=== PATIENT | male | born 1955 | race Caucasian/White ===

== ENCOUNTER 2017-01-01 22:46 | Emergency (ER) | payer SELFPAY ==
[~2017-01-01] VITALS: Ht 180.3 cm; Wt 117.0 kg
[~2017-01-01 22:46] MED LIST: BACTDS PO; CEPH-443 PO; IBUP-1542 PO
[2017-01-01 22:49] VITALS: Ht 180.3 cm; Wt 117.0 kg
[2017-01-01] MEDS ORDERED: PIPER-TAZO 3.375 GM IV (PMX) 100 ML IVPB STA (23:05)
[2017-01-01] MEDS ORDERED: VANCOMYCIN 1 GM (PMX) 250 ML IVPB STA (23:05)
[2017-01-01] MEDS ORDERED: SOD CHLORIDE 0.9% 1,000 ML IV ONE (23:30)
[2017-01-01] MEDS ORDERED: DIPHENHYDRAMINE 50 MG INJ IM ONE (23:30)
--- NOTE | 2017-01-02 00:03 | ERD ---
ER Documentation Chief Complaint Date/Time DATE: 01/02/17 TIME: 00:00 Chief Complaint c/o generalized body rash x 3 days. Non healing wound to LLE x 2 yrs. HPI This 61-year-old male patient presents to emergency department today for evaluation of a painful black lesion on left foot. Patient reports lesion is chronic, but reports redness pain swelling and inability to weight-bear over the last 3 days. Patient has not had medical care in over 2 years. Patient reports pain is 8/10 on pain scale. Has secondary complaint of a pruritic body rash with no known causative factor, patient has not tried any new medication or vitamin, denies any new foods soap or home products and use. 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 Patient reports that he is frequently hungry, thirsty, with frequent urination, denies history of diabetes himself, denies any medical history, denies smoking, cardiovascular disease, chest pain shortness of breath , palpitations or dizziness. ROS All systems reviewed and are negative except as per history of present illness. Medications Home Meds Active Scripts Ibuprofen* (Motrin*) 600 Mg Tab, 600 MG PO Q8, #15 Prov:PAUL,MARGIE 03/17/15 Cephalexin* (Keflex*) 500 Mg Capsule, 500 MG PO QID for 5 Days, CAP Prov:PAUL,MARGIE 03/17/15 Cephalexin* (Keflex*) 500 Mg Capsule, 500 MG PO TID for 7 Days, CAP Prov:VISH PATTERSON NP 02/17/15 Sulfamethoxazole-Trimethoprim* (Bactrim* DS) 800-160 Mg Tab, 1 TAB PO BID for 10 Days, TAB Prov:VISH PATTERSON NP 02/17/15 Ibuprofen* (Motrin*) 600 Mg Tab, 600 MG PO Q6H Y for PAIN AND OR ELEVATED TEMP, #30 Prov:VISH PATTERSON NP 02/17/15 Allergies Allergies: Coded Allergies: No Known Allergy (Unverified , 02/17/15) PMhx/Soc Medical and Surgical Hx: pt denies Medical Hx, pt denies Surgical Hx History of Surgery: No Anesthesia Reaction: No Hx Neurological Disorder: No Hx Respiratory Disorders: No Hx Cardiac Disorders: No Hx Psychiatric Problems: No Hx Miscellaneous Medical Probl: No Hx Alcohol Use: No Hx Substance Use: No Hx Tobacco Use: No Physical Exam Vitals Vital Signs Date Time Temp Pulse Resp B/P Pulse Ox O2 Delivery O2 Flow Rate FiO2 01/02/17 01:50 97.6 65 18 112/69 97 Room Air 01/01/17 22:49 99.2 80 18 154/86 95 Vitals stable, triage notes reviewed Physical Exam Const: Obese, hydrated male patient in dirty clothes in no acute distress Head: Atraumatic Eyes: Normal Conjunctiva, PERRLA, EOMI ENT: Normal External Ears, Nose and Mouth, mucous membranes moist. Neck: Full range of motion..~ No meningismus. Resp: Clear to auscultation bilaterally no rales wheezes or rhonchi Cardio: Regular rate and rhythm, no murmurs S1-S2, no S3, S4 Abd: Soft, obese non tender, non distended. Skin: Patient has a 4 cm x 3.5 cm black stasis ulcer surrounding erythema, with warmth and edema. Back: Ext: Lower Extremity - bilateral: Skin: 4 cm x 3.5 cm black stasis ulcer surrounding erythema , with warmth and edema. Compartments: Soft Motor: Full active range of motion hip/knee/ankle/foot Sensation: [Intact to light touch all surfaces.] Bones: Nontender pelvis/knee/proximal tibia/ malleoli/foot Joints: No effusion or laxity Pulses/Perfusion: 2+ DP, Capillary refill < 2 seconds Neur: Awake and alert Psych: Normal Mood and Affect Result Diagram: 01/01/17 2310 01/01/17 2310 Results 24 hrs Laboratory Tests Test 01/01/17 23:10 White Blood Count 8.610^3/ul Red Blood Count 5.0710^6/ul Hemoglobin 15.3g/dl Hematocrit 46.3% Mean Corpuscular Volume 91.3fl Mean Corpuscular Hemoglobin 30.2pg Mean Corpuscular Hemoglobin Concent 33.0g/dl Red Cell Distribution Width 13.7% Platelet Count 10314^3/UL Mean Platelet Volume 11.4fl Neutrophils % 53.3% Lymphocytes % 36.0% Monocytes % 8.0% Eosinophils % 2.3% Basophils % 0.3% Nucleated Red Blood Cells % 0.0/100WBC Neutrophils # 4.610^3/ul Lymphocytes # 3.110^3/ul Monocytes # 0.710^3/ul Eosinophils # 0.210^3/ul Basophils # 0.010^3/ul Nucleated Red Blood Cells # 0.010^3/ul Prothrombin Time 13.6Sec Prothrombin Time Ratio 1.1 INR International Normalized Ratio 1.04 Activated Partial Thromboplast Time 29.6Sec Urine Color YELLOW Urine Clarity CLEAR Urine pH 6.0 Urine Specific [place] 1.009 Urine Ketones NEGATIVEmg/dL Urine Nitrite NEGATIVEmg/dL Urine Bilirubin NEGATIVEmg/dL Urine Urobilinogen NEGATIVEmg/dL Urine Leukocyte Esterase NEGATIVELeu/ul Urine Microscopic RBC 3/HPF Urine Microscopic WBC 0/HPF Urine Hemoglobin 2+mg/dL Urine Glucose NEGATIVEmg/dL Urine Total Protein NEGATIVEmg/dl Sodium Level 138mmol/L Potassium Level 3.5mmol/L Chloride Level 101mmol/L Carbon Dioxide Level 30mmol/L Anion Gap 11 Blood Urea Nitrogen 15mg/dl Creatinine 0.83mg/dl Glucose Level 111mg/dl Lactic Acid Level 1.3mmol/L Calcium Level 9.6mg/dl Total Bilirubin 0.4mg/dl Direct Bilirubin 0.00mg/dl Indirect Bilirubin 0.4mg/dl Aspartate Amino Transf (AST/SGOT) 27IU/L Alanine Aminotransferase (ALT/SGPT) 32IU/L Alkaline Phosphatase 69IU/L Troponin I < 0.012ng/ml Total Protein 7.8g/dl Albumin 4.7g/dl Globulin 3.10g/dl Albumin/Globulin Ratio 1.51 Current Medications Medications (Trade) Dose Ordered Sig/Kvng Route PRN Reason Start Time Stop Time Status Last Admin Dose Admin Vancomycin HCl 250 ml @ 125 mls/hr ONCE STAT IVPB 01/01/17 23:05 01/02/17 01:04 DC 01/02/17 01:42 Piperacillin Sod/ Tazobactam Sod 100 ml @ 100 mls/hr ONCE STAT IVPB 01/01/17 23:05 01/02/17 00:04 DC 01/02/17 00:39 Sodium Chloride (NS) 1,000 ml @ 1,000 mls/hr Q1H ONCE IV 01/01/17 23:30 01/02/17 00:29 DC 01/02/17 00:25 Diphenhydramine HCl (Benadryl) 25 mg ONCE ONCE IM 01/01/17 23:30 01/02/17 00:34 DC Diphenhydramine HCl (Benadryl) 25 mg ONCE ONCE IV 01/02/17 01:00 01/02/17 01:01 DC 01/02/17 00:38 Acetaminophen/ Hydrocodone Bitart ([place] (5/325)) 1 tab ONCE ONCE PO 01/02/17 02:30 01/02/17 02:31 DC 01/02/17 02:36 Interpretation text CBC shows no evidence of hemorrhage or infection Chemistry shows no evidence of significant electrolyte abnormalities or renal insufficiency Liver function tests shows no evidence of acute biliary or hepatic dysfunction Coagulation study showed no concerning coagulpathy Troponin show no evidence of acute myocardial injury or coronary ischemia Procedures/MDM PROCEDURE: XR Left Ankle. CLINICAL INDICATION: Necrotic wound TECHNIQUE: Two views of the left ankle were performed. COMPARISON: None. FINDINGS: There is posterior and medial malleolar subcutaneous soft tissue swelling. There is no underlying fracture, soft tissue gas or bony erosion.. Joint relationships are maintained. Ankle mortise is intact. Bone mineralization is within normal limits. There is no radiopaque foreign body. There is a plantar calcaneal bone spur. IMPRESSION: Posterior medial malleolar subcutaneous soft tissue swelling without underline lesion. Plantar calcaneal bone spur.. Electronically viewed and signed by .Nils Fowler MD, MD on 01/02/2017 00:24 PROCEDURE: XR Chest. CLINICAL INDICATION: Necrotic wound. TECHNIQUE: Single frontal chest x-ray. COMPARISON: None. FINDINGS: Heart is mildly enlarged.. Point vessels are top normal caliber.. No focal infiltrate is seen. There is no pleural effusion. There is no pneumothorax. The osseous structures are unremarkable. IMPRESSION: Cardiomegaly. Pulmonary vessels top normal caliber. No focal infiltrate. Electronically viewed and signed by .Nils Fowler MD, on 01/02/2017 00:22 PROCEDURE: US left lower extremity venous Doppler CLINICAL INDICATION: Swelling TECHNIQUE: Multiple sonographic images of the left lower extremity deep venous system was obtained utilizing grayscale, color-flow, compressive sonography and Doppler imaging with augmentation. COMPARISON: No pertinent prior examinations were submitted for comparison. FINDINGS: There is normal compressibility and flow within the left common femoral, superficial femoral, popliteal, and calf veins. IMPRESSION: No sonographic evidence for left deep venous thrombosis. Electronically viewed and signed by .Jovani Blanchard MD, on 01/02/2017 00:31 This 61-year-old male patient presents to emergency department today with cellulitis of a chronic ulcer. Patient reports no medical care for the last several years, has had ulcerative plaque on his left medial ankle for several years, reports treatment once without effective relief of symptoms also reports that he has used some sort of topical cream that was prescribed for his with no change in symptoms. Exanthem on torso and arms described as pruritic. Osteomyelitis, necrotizing fasciitis, pulmonary embolism, not suspected. Routine serologies shows no evidence of hemorrhage or acute infection. No electrolyte dysfunction or diabetes, Coagulation study showed no concerning coagulpathy. Blood cultures drawn with results pending, lactate normal. Deep vein thrombosis is ruled out impression no sonographic evidence for deep vein thrombosis, there is normal compressibility and flow within the left common femoral supra facial femoral popliteal and calf veins. Chest x-ray reveals cardiomegaly, pulmonary vessels top caliber with no in, left ankle x-ray documents posterior medial malleolus subcutaneous soft tissue swelling without underlying lesion, Soft tissue infection treated with vancomycin, Zosyn, patient receives 1 L of IV fluids, pain treated with [place]. Patient reports improvement of symptoms assisted through treatments. Able to ambulate to bathroom with no report of pain. And to discharge patient home with Keflex, Zosyn, short dose of [place] and instructions to follow-up with wound clinic. Return to emergency department for worsening of symptoms, pain, shortness of breath, I feel the patient is stable for discharge at this time. I have discussed results, examination findings, the treatment plan with the patient and family present prior to discharge. Indications for emergent reevaluation, side effects of medication were also discussed. All questions were answered. Patient verbalizes understanding and agrees with plan of care. Case discussed with supervising physician Dr. Russ Caro Diagnosis: Primary Impression: Cellulitis Site of cellulitis: extremity Site of cellulitis of extremity: lower extremity Laterality: left Qualified Code: L03.116 - Cellulitis of left lower extremity Additional Impression: Venous ulcer of ankle Laterality: left Qualified Code: I83.023 - Venous ulcer of ankle, left Condition: Good Patient Instructions: Cellulitis, Venous Leg Ulcer Referrals: [facility] Additional Instructions: Thank you for for coming to [facility] for your care today. Please ask your nurse or provider if you have questions about your care today and do not leave until all your questions have been answered. Please use any medications given as directed and follow-up with your doctor (or the doctor you were referred to) in the next 2-3 days. If you do not have a primary care doctor you may follow up at the [facility] (listed below). You may also use motrin and tylenol as needed for fever and/or pain unless instructed otherwise by your provider or nurse. Indications for more urgent follow-up have been discussed, but you may return to the Emergency Department at ANY time for any worrisome or worsening symptoms. If you have abdominal pain, please know that no test or exam you received is perfect and you should follow up within 8 hours for continued pain. If you had any imaging studies today, such as an X-Ray or CT Scan, these studies will be reviewed later by a radiologist. You will be called if there are important findings that were not identified today, so make sure the contact information you provided at registration is correct. If you received any narcotic pain control medicine today, such as Vicodin, Morphine or Dilaudid, your coordination and judgment may be affected for a number of hours. Please do not drive or operate heavy machinery, and you may want someone to assist you at home. If you were given a prescription for narcotic medication, be aware that it is very addictive- use sparingly and only if necessary. LEONARDA ROMANO Jan 02, 2017 00:03
[2017-01-02 00:04] LABS: ADD SCAN DIFF NO; BASOPHILS % 0.3 % (0.0-2.0); EOSINOPHILS # 0.2 10^3/ul (0.0-0.5); EOSINOPHILS % 2.3 % (0.0-7.0); HEMATOCRIT 46.3 % (42.0-52.0); HEMOGLOBIN 15.3 g/dl (14.0-18.0); LYMPHOCYTES # 3.1 10^3/ul (0.8-2.9); MEAN CORPUSCULAR HEMOGLOBIN 30.2 pg (29.0-33.0); MEAN CORPUSCULAR VOLUME 91.3 fl (82.0-101.0); MEAN PLATELET VOLUME 11.4 fl (7.4-10.4); MONOCYTE # 0.7 10^3/ul (0.3-0.9); NEUTROPHIL # 4.6 10^3/ul (1.6-7.5); NEUTROPHILS % 53.3 % (39.0-77.0); PLATELET COUNT 182 10^3/UL (140-415); RED BLOOD COUNT 5.07 10^6/ul (4.70-6.10); RED CELL DISTRIBUTION WIDTH 13.7 % (11.5-14.5); WHITE BLOOD COUNT 8.6 10^3/ul (4.8-10.8)
[2017-01-02 00:17] LABS: ADD UMIC YES; UR ASCORBIC ACID NEGATIVE (NEGATIVE); UR BILIRUBIN (Dip) NEGATIVE (NEGATIVE); UR BLOOD (Dip) 2+ mg/dL (NEGATIVE); UR CLARITY CLEAR (CLEAR); UR COLOR YELLOW (YELLOW); UR GLUCOSE (Dip) NEGATIVE (NEGATIVE); UR KETONES (Dip) NEGATIVE (NEGATIVE); UR LEUKOCYTE ESTERASE (Dip) NEGATIVE Leu/ul (NEGATIVE); UR NITRITE (Dip) NEGATIVE (NEGATIVE); UR RBC 3 /HPF (0-5); UR SPECIFIC GRAVITY (Dip) 1.009 (1.003-1.030); UR TOTAL PROTEIN (Dip) NEGATIVE (NEGATIVE); UR UROBILINOGEN (Dip) NEGATIVE (NEGATIVE)
--- NOTE | 2017-01-02 00:22 | RADRPT ---
PROCEDURE: XR Chest. CLINICAL INDICATION: Sepsis. TECHNIQUE: Single frontal chest x-ray. COMPARISON: None. FINDINGS: Heart is mildly enlarged.. Point vessels are top normal caliber.. No focal infiltrate is seen. The re is no pleural effusion. There is no pneumothorax. The osseous structures are unremarkable. IMPRESSION: Cardiomegaly. Pulmonary vessels top normal caliber. No focal infiltrate. RPTAT: HMVK .Nils Fowler MD, MD Date Time Electronically viewed and signed by .Nils Fowler MD, on 01/02/2017 00:22 .K/
[2017-01-02 00:25] LABS: INR 1.04; PROTIME 13.6 Sec (12.2-14.2); PT RATIO 1.1
--- NOTE | 2017-01-02 00:25 | RADRPT ---
PROCEDURE: XR Left Ankle. CLINICAL INDICATION: Necrotic wound TECHNIQUE: Two views of the left ankle were performed. COMPARISON: None. FINDINGS: There is posterior and medial malleolar subcutaneous soft tissue swelling. There is no underlying f racture, soft tissue gas or bony erosion.. Joint relationships are maintained. Ankle mortise is in tact. Bone mineralization is within normal limits. There is no radiopaque foreign body. There is a plantar calcaneal bone spur. IMPRESSION: Posterior medial malleolar subcutaneous soft tissue swelling without underline lesion. Plantar calc aneal bone spur.. RPTAT: HMVK .Nils Fowler MD, Date Time Electronically viewed and signed by .Nils Fowler MD, on 01/02/2017 00:24 .K/
[2017-01-02 00:26] LABS: PARTIAL THROMBOPLASTIN TIME 29.6 Sec (25.0-35.0)
[2017-01-02 00:29] LABS: ALANINE AMINOTRANSFERASE 32 IU/L (13-69); ALBUMIN 4.7 g/dl (3.3-4.9); ALBUMIN/GLOBULIN RATIO 1.51; ALKALINE PHOSPHATASE 69 IU/L (42-121); ANION GAP 11 (8-16); ASPARTATE AMINO TRANSFERASE 27 IU/L (15-46); BILIRUBIN,INDIRECT 0.4 mg/dl (0-1.1); BILIRUBIN,TOTAL 0.4 mg/dl (0.2-1.3); BLOOD UREA NITROGEN 15 mg/dl (7-20); CALCIUM 9.6 mg/dl (8.4-10.2); CARBON DIOXIDE 30 mmol/L (21-31); CHLORIDE 101 mmol/L (97-110); CREATININE 0.83 mg/dl (0.61-1.24); GLUCOSE 111 mg/dl (70-220); POTASSIUM 3.5 mmol/L (3.5-5.1); SODIUM 138 mmol/L (135-144); TOTAL PROTEIN 7.8 g/dl (6.1-8.1)
--- NOTE | 2017-01-02 00:31 | RADRPT ---
PROCEDURE: US left lower extremity venous Doppler CLINICAL INDICATION: Swelling TECHNIQUE: Multiple sonographic images of the left lower extremity deep venous system was obtained utilizing grayscale, color-flow, compressive sonography and Doppler imaging with augmentation. COMPARISON: No pertinent prior examinations were submitted for comparison. FINDINGS: There is normal compressibility and flow within the left common femoral, superficial femoral, poplit eal, and calf veins. IMPRESSION: No sonographic evidence for left deep venous thrombosis. RPTAT: HIKT .Jovani Blanchard MD, MD Date Time Electronically viewed and signed by .Jovani Blanchard MD, on 01/02/2017 00:31 .T/
[2017-01-02 00:47] LABS: TROPONIN-I < 0.012 ng/ml (0.00-0.12)
[2017-01-02] MEDS ORDERED: DIPHENHYDRAMINE 50 MG INJ IV ONE (01:00)
[2017-01-02 01:50] VITALS: BP 112/69; PULSE 65; RESP 18; TEMP 97.6
[2017-01-02] MEDS ORDERED: HYDROCODONE/APAP (5/325) TAB PO ONE (02:30)
[2017-01-02] MEDS ORDERED: SULF1TAB31 PO (02:53)
[2017-01-02] MEDS ORDERED: CEPH-443 PO (02:53)
[2017-01-02] MEDS ORDERED: HYDR-906 PO (02:54)
== END 2017-01-02 04:11 | disposition home or self-care (01) ==
LOC: FTE 22:46
DX: L03.116 Cellulitis of left lower limb (principal); I83.023 Varicose veins of left lower extremity with ulcer of ankle; L97.329 Non-pressure chronic ulcer of left ankle with unspecified severity; E66.9 Obesity, unspecified; M79.89 Other specified soft tissue disorders; Z68.35 Body mass index [BMI] 35.0-35.9, adult
CPT/HCPCS: 36415; 71010; 73600; 80053; 81001; 83605; 84484; 85025; 85610; 85730; 87040; 87086; 93005; 93971; 96374; 96375; 99285; J1200; J2543; J3370; J7030

== ENCOUNTER 2017-02-02 17:58 | Emergency (ER) | END 2017-02-02 21:27 | disposition home or self-care (01) | DX: I87.2 Venous insufficiency (chronic) (peripheral) (principal); I10 Essential (primary) hypertension; E11.9 Type 2 diabetes mellitus without complications; E66.9 Obesity, unspecified | CPT/HCPCS: 36415; 73610; 80048; 85025; Z7502; Z7610 ==

== ENCOUNTER 2018-12-30 11:07 | Emergency (ER) | payer BC, MEDICAID ==
[~2018-12-30] VITALS: Ht 165.1 cm; Wt 111.1 kg
[~2018-12-30 11:07] MED LIST changes: +HYDR-4011 PO; +MUPI22OI2 TOP; +SULF1TAB31 PO
[2018-12-30 11:15] VITALS: Ht 165.1 cm; Wt 111.1 kg
[2018-12-30] MEDS ORDERED: CEPH-443 PO (12:55)
[2018-12-30] MEDS ORDERED: SULF1TAB31 PO (12:55)
[2018-12-30] MEDS ORDERED: MUPI22OI2 TOP (12:55)
--- NOTE | 2018-12-30 13:04 | ERD ---
ER Documentation Chief Complaint Chief Complaint HAS WOUND LEFT LEG X 3 YEARS, DRAINING X 3 DAYS HPI This is a 63-year-old male with a history of venous insufficiency presents ED with complaints of left medial ankle ulceration that is been present for the past 8 years. Patient states that initially the ankle ulceration started out very small but it has grown over the past 8 years. Patient had a vein surgery performed roughly 1-1/2 years ago. Over the past week or 1-year-old he has started to experience pain along the left medial ankle and states that it has been using scant liquid. Patient has not followed up with vascular surgery or wound care regarding the left medial ankle wound. Denies fevers, chills, tingling, numbness, lack sensation, chest pain, shortness of breath, trouble breathing, and all other symptoms. ROS All systems reviewed and are negative except as per history of present illness. Medications Home Meds Active Scripts Mupirocin* (Bactroban*) 2% -22 Gram Oint...g., 1 APPLIC TOP BID for 7 Days, EA Prov:AMADA ALVARADO PA-C 12/30/18 Cephalexin* (Keflex*) 500 Mg Capsule, 500 MG PO QID for 7 Days, CAP Prov:AMADA ALVARADO PA-C 12/30/18 Sulfamethoxazole/Trimethoprim* (Bactrim Ds* Tablet) 1 Each Tablet, 1 TAB PO BID, #14 TAB Prov:AMADA ALVARADO PA-C 12/30/18 Mupirocin* (Bactroban*) 2% -22 Gram Oint...g., 1 APPLIC TOP BID for 10 Days, #1 TUB Prov:BINU MCKEON MD 02/02/17 Hydrocodone/Acetaminophen (Orestes 5-325 Tablet) 1 Each Tablet, 1 TAB PO Q6H PRN for PAIN, #12 TAB Prov:ROSALINA,LEONARDA 01/02/17 Sulfamethoxazole/Trimethoprim* (Bactrim Ds* Tablet) 1 Each Tablet, 1 TAB PO DAILY, #7 TAB Prov:ROSALINA,LEONARDA 01/02/17 Cephalexin* (Keflex*) 500 Mg Capsule, 500 MG PO QID for 10 Days, #40 CAP Prov:ROSALINA,LEONARDA 01/02/17 Ibuprofen* (Motrin*) 600 Mg Tab, 600 MG PO Q8, #15 Prov:MARGIE MILLER DO 03/17/15 Cephalexin* (Keflex*) 500 Mg Capsule, 500 MG PO QID for 5 Days, CAP Prov:MARGIE MILLER DO 03/17/15 Cephalexin* (Keflex*) 500 Mg Capsule, 500 MG PO TID for 7 Days, CAP Prov:VISH PATTERSON [employer] 02/17/15 Sulfamethoxazole-Trimethoprim* (Bactrim* DS) 800-160 Mg Tab, 1 TAB PO BID for 10 Days, TAB Prov:VISH PATTERSON [employer] 02/17/15 Ibuprofen* (Motrin*) 600 Mg Tab, 600 MG PO Q6H PRN for PAIN AND OR ELEVATED TEMP, #30 Prov:VISH PATTERSON NP 02/17/15 Allergies Allergies: Coded Allergies: No Known Allergy (Unverified , 12/30/18) PMhx/Soc Medical and Surgical Hx: pt denies Medical Hx, pt denies Surgical Hx History of Surgery: No Anesthesia Reaction: No Hx Neurological Disorder: No Hx Respiratory Disorders: No Hx Cardiac Disorders: Yes (HTN) Hx Psychiatric Problems: No Hx Miscellaneous Medical Probl: No Hx Alcohol Use: Yes (social) Hx Substance Use: No Hx Tobacco Use: No Smoking Status: Never smoker FmHx Family History: No diabetes Physical Exam Vitals Vital Signs Date Temp Pulse Resp B/P (MAP) Pulse Ox O2 O2 Flow FiO2 Time Delivery Rate 12/30/18 97.4 82 18 144/85 99 11:15 (104) Physical Exam Physical Exam Vitals signs: Reviewed by me. General: Well developed, well nourished, in no acute distress. Patient is awake and alert. Head: Normocephalic, atraumatic. Eyes: Normal conjunctiva, Pupils PERRLA, EOM intact grossly ENT: Pharynx is clear, Moist mucous membranes, external ears, nose and mouth normal Neck: Supple, no masses, lymphadenopathy or JVD Respiratory: Clear to auscultation bilaterally with no wheezing, rhonchi, rales, no distress Cardiovascular: RRR, no murmurs, rubs, or gallops MSK: No edema, no unilateral swelling, 5/5 strength Back: No midline tenderness. No flank tenderness Neurologic: Alert and oriented, moving all extremities, normal speech, no focal weakness, no cerebellar signs. Normal mentation Skin: There is an ulceration present along patient's left medial ankle, it is mildly tender to palpation, there is no surrounding redness, warmth, no purulent drainage or oozing liquid is expressed when palpating, no lymphatic streaking Psych: Normal mood Procedures/MDM ER COURSE: The patient was stable throughout ED course. I kept the patient and/or family informed of laboratory and diagnostic imaging results throughout the emergency room course. The patient was promptly evaluated and a treatment plan was devised based on H&P and other data. This plan was discussed with the patient who agreed and had no further questions or concerns prior to discharge. MEDICAL DECISION MAKING: This is a 63-year-old male with a history of chronic venous insufficiency presents ED with complaints of left medial ankle ulceration that is been present for the past 8 years. Patient states that over the past week or 2 the ulcerated area has become more painful and it started using liquid. Physical examination is remarkable for a ulceration of the left medial ankle. There is no purulent drainage or oozing liquid expressed when palpating, no fluctuant masses palpated. Given patient's history of increasing pain will treat patient with antibiotics to cover for any developing infection. It was stressed to patient that he needs to follow-up with vascular surgery as well as wound care for furt her management. At this time there is no dermatologic emergency. No evidence of osteomyelitis, septic joint, gangrene, STS, TEN, Lyme's disease, syphilis, [place] spotted fever, shingles, disseminated gonorrhea chlamydia, DIC, TTP, ITP, sepsis, necrotizing fasciitis, gangrene, or other emergent condition. Patient's vitals are stable and can be managed with outpatient close follow-up. Advised patient to follow-up with her primary care in the next 48 hours. Advised patient return to ED with any worsening symptoms. I discussed case with my overseeing physician Dr. Gayle who agrees with plan of close outpatient follow-up. DISPOSITION PLAN: We discussed follow up with the patient's primary care doctor within 24 to 48 hours. Patient counseled regarding my diagnostic impression and care plan. Prior to discharge all questions answered. Pt agrees with treatment plan and understands strict return precautions. Precautionary instructions provided including instructions to return to the ER if not improving or for any worsening or changing symptoms or concerns. SPECIALIST FOLLOW UP RECOMMENDED: Vascular surgery and wound care Patient has been advised to follow up with primary care in 1-2 days. Disclaimer: Inadvertent spelling and grammatical errors are likely due to EHR/dictation software use and do not reflect on the overall quality of patient care. Also, please note that the electronic time recorded on this note does not necessarily reflect the actual time of the patient encounter. Blood Pressure Assessment: Patient's blood pressure was elevated (>120/80) but appears stable without evidence of hypertension emergency or urgency. The patient was counseled about the risks of hypertension and urged to pursue outpatient monitoring and therapy within a week with their primary care physician. Departure Diagnosis: Primary Impression: Ankle ulcer Laterality: left Non-pressure ulcer stage: unspecified non-pressure ulcer stage Qualified Codes: L97.329 - Non-pressure chronic ulcer of left ankle with unspecified severity Additional Impressions: Venous insufficiency of left lower extremity Venous stasis dermatitis of left lower extremity Condition: Stable Patient Instructions: Understanding Chronic Venous Insufficiency, Chronic Venous Insufficiency: Treating Ulcers Referrals: MAGDIEL TORRES MD,SUZIE ANDRADE,ROXANNE MARLOW,LURDES BARNETT,ASHLEY BAIRD,VARINDER FREITAS,HIMANSHU CRANDALL,MATEUSZ RAMIRES,DIAN SULLIVAN,SHIRLEY Fonseca MD [facility] YOU HAVE RECEIVED A MEDICAL SCREENING EXAM AND THE RESULTS INDICATE THAT YOU DO NOT HAVE A CONDITION THAT REQUIRES URGENT TREATMENT IN THE EMERGENCY DEPARTMENT. FURTHER EVALUATION AND TREATMENT OF YOUR CONDITION CAN WAIT UNTIL YOU ARE SEEN IN YOUR DOCTORS OFFICE WITHIN THE NEXT 1-2 DAYS. IT IS YOUR RESPONSIBILITY TO MA KE AN APPOINTMENT FOR FOLOW-UP CARE. IF YOU HAVE A PRIMARY DOCTOR --you should call your primary doctor and schedule an appointment IF YOU DO NOT HAVE A PRIMARY DOCTOR YOU CAN CALL OUR PHYSICIAN REFERRAL HOTLINE AT IF YOU CAN NOT AFFORD TO SEE A PHYSICIAN YOU CAN CHOSE FROM THE FOLLOWING [facility] [address] [facility] [address] [facility]. [facility] [address] [facility] [address] [facility] [address] [facility]. [facility] [address] [facility] [facility] YOU HAVE RECEIVED A MEDICAL SCREENING EXAM AND THE RESULTS INDICATE THAT YOU DO NOT HAVE A CONDITION THAT REQUIRES URGENT TREATMENT IN THE EMERGENCY DEPARTMENT. FURTHER EVALUATION AND TREATMENT OF YOUR CONDITION CAN WAIT UNTIL YOU ARE SEEN IN YOUR DOCTORS OFFICE WITHIN THE NEXT 1-2 DAYS. IT IS YOUR RESPONSIBILITY TO MAKE AN APPOINTMENT FOR FOLOW-UP CARE. IF YOU HAVE A PRIMARY DOCTOR --you should call your primary doctor and schedule and appointment IF YOU DO NOT HAVE A PRIMARY DOCTOR YOU CAN CALL OUR PHYSICIAN REFERRAL HOTLINE AT . IF YOU CAN NOT AFFORD TO SEE A PHYSICIAN YOU CAN CHOSE FROM THE FOLLOWING [facility] INSTITUTIONS: [address] [place] [address] Additional Instructions: Patient advised to return to the ED immediately for new or worsening symptoms. Patient advised to follow up with primary care provider in the next 24-48 hours. Patient verbalized understanding and agrees with treatment plan and course of action. If patient has no primary care they may follow up with one of the community clinics listed on the following page or one of the options listed below [facility] [address] [place] [id number] [place] [address] [place] [address] AMADA ALVARADO PA-C Dec 30, 2018 13:04
[2018-12-30 13:13] VITALS: BP 139/85; PULSE 74; RESP 18
== END 2018-12-30 13:15 | disposition home or self-care (01) ==
LOC: FTE 11:07
DX: L97.329 Non-pressure chronic ulcer of left ankle with unspecified severity (principal); I10 Essential (primary) hypertension; I87.2 Venous insufficiency (chronic) (peripheral)
CPT/HCPCS: 99283